=== PATIENT | female | born 1955 | race Caucasian/White ===

== ENCOUNTER 2018-07-28 12:44 | Emergency (ER) | payer BC, OTHER ==
--- NOTE | 2018-07-28 13:13 | UC ---
Skin Complaint HPI - HPI Summary HPI Summary: has had a tick on her left shoulder for about 3 days==seen it yesterday but friend told her it was not a tick - History of Current Complaint Chief Complaint: UCSkin Time Seen by Provider: 07/28/18 13:04 Stated Complaint: LT SHOULDER TICK BITE Hx Obtained From: Patient ?: No Onset/Duration: Sudden Onset, Lasting Days - 3, Still Present Skin Exposure Onset/Duration: Days Ago - 3 Pain Intensity: 3 Pain Scale Used: 0-10 Numeric Location: Discrete - left anterior shoulder Aggravating Factor(s): Nothing Alleviating Factor(s): Nothing Associated Signs & Symptoms: Negative: Red Streaks Related History: Insect Bite/Sting - Allergy/Home Medications Allergies/Adverse Reactions: Allergies Allergy/AdvReac Type Severity Reaction Status Date / Time No Known Allergies Allergy Verified 07/28/18 12:59 Home Medications: Home Medications Cholecalciferol TAB* [Vitamin D TAB*] 1,000 unit PO DAILY 07/28/18 [History Confirmed 07/28/18] Loratadine 10 mg PO DAILY 07/28/18 [History Confirmed 07/28/18] PMH/Surg Hx/FS Hx/Imm Hx Previously Healthy: Yes - Surgical History Surgical History: Yes Surgery Procedure, Year, and Place: left shoulder rotator cuff - Family History Known Family History: Positive: None - Social History Occupation: Unemployed Lives: With Family Alcohol Use: Weekly Substance Use Type: None Smoking Status (MU): Never Smoked Tobacco Review of Systems All Other Systems Reviewed And Are Negative: Yes Constitutional: Positive: Negative Skin: Positive: Other - erythema around site of tick (no bulls eye) Eyes: Positive: Negative ENT: Positive: Negative Respiratory: Positive: Negative Cardiovascular: Positive: Negative Gastrointestinal: Positive: Negative Genitourinary: Positive: Negative Motor: Positive: Negative Neurovascular: Positive: Negative Musculoskeletal: Positive: Negative Neurological: Positive: Negative Psychological: Positive: Negative Is Patient Immunocompromised?: No Physical Exam Triage Information Reviewed: Yes Appearance: Well-Appearing, No Pain Distress, Well-Nourished Vital Signs: Initial Vital Signs Temp 97.8 F 07/28/18 12:54 Pulse 84 07/28/18 12:54 Resp 16 07/28/18 12:54 BP 181/92 07/28/18 12:54 Pulse Ox 100 07/28/18 12:54 Vital Signs Reviewed: Yes Eye Exam: Normal Eyes: Positive: Conjunctiva Clear ENT Exam: Normal ENT: Positive: Normal ENT inspection, Hearing grossly normal. Negative: Trismus , Muffled voice, Hoarse voice Dental Exam: Normal Neck exam: Normal Neck: Positive: Supple, Nontender, No Lymphadenopathy Respiratory Exam: Normal Respiratory: Positive: No respiratory distress, No accessory muscle use Cardiovascular Exam: Normal Cardiovascular: Positive: Pulses Normal, Brisk Capillary Refill Musculoskeletal Exam: Normal Musculoskeletal: Positive: Strength Intact, ROM Intact, No Edema Neurological Exam: Normal Neurological: Positive: Alert, Muscle Tone Normal Psychological Exam: Normal Skin Exam: Other Skin: Positive: Other - tick embedded in anterior left shoulder with surrounding erythema no bulls eye rash no streak Re-Evaluation - Re-Evaluation First Eval Change: Improved - Tick removed intact with tick twister Course/Dx - Course Course Of Treatment: mild soap and water wash, Doxycycline 200mg times one now follow with [facility],for blood pressure recheck and any s/s of Lyme - Diagnoses Provider Diagnosis: Tick bite of left shoulder, Risk of exposure to Lyme disease, Hypertension goal BP (blood pressure) < 140/90 Discharge - Sign-Out/Discharge Documenting (check all that apply): Patient Departure All imaging exams completed and their final reports reviewed: No Studies - Discharge Plan Condition: Stable Disposition: HOME Prescriptions: DOXYcycline CAP(*) [DOXYcycline 100MG CAP(*)] 200 mg PO DAILY #2 cap Patient Education Materials: Lyme Disease (ED), Tick Bite (ED), Hypertension ( ED) Referrals: [facility] [Outside] - 2 Weeks - Billing Disposition and Condition Condition: STABLE Disposition: Home
== END 2018-07-28 13:40 | disposition home or self-care (01) ==
LOC: UCEAST 12:44
DX: S40.262A Insect bite (nonvenomous) of left shoulder, initial encounter (principal); W57.XXXA Bitten or stung by nonvenomous insect and other nonvenomous arthropods, initial encounter; Y92.9 Unspecified place or not applicable; I10 Essential (primary) hypertension
CPT/HCPCS: 99203; G0463